=== PATIENT | male | born 1985 | race Two or more races ===

== ENCOUNTER 2018-08-07 16:53 | Emergency (ER) | payer OTHER ==
[~2018-08-07] VITALS: Ht 170.2 cm; Wt 88.9 kg
[2018-08-07 16:57] VITALS: BP 124/96
[2018-08-07] MEDS ORDERED: IBUPROFEN 600 MG TABLET PO ONE ×2 (17:30)
== END 2018-08-07 17:48 | disposition home or self-care (01) ==
LOC: ER 17:08
DX: S93.692A Other sprain of left foot, initial encounter (principal); X58.XXXA Exposure to other specified factors, initial encounter; Y93.89 Activity, other specified; Y92.89 Other specified places as the place of occurrence of the external cause; Y99.8 Other external cause status
CPT/HCPCS: 73630-TC